=== PATIENT | female | born 1950 | race Caucasian/White ===

== ENCOUNTER → 2019-02-17 | Outpatient (CLI) | payer OTHER ==
[~2019-02-17] MED LIST: ARMOUR THYROID60 MG PO; FLO4 PO; LAC PO; PROMETRIUM200 MG PO; ZOS3PM IV
== END | disposition home or self-care (01) ==
LOC: MA 09:09
PROC: BH02ZZZ Plain Radiography of Bilateral Breasts (ICD-10-PCS; principal; 2019-02-17)
DX: Z12.31 Encounter for screening mammogram for malignant neoplasm of breast (principal)
CPT/HCPCS: 77067